=== PATIENT | female | born 1990 | race Two or more races ===

== ENCOUNTER 2018-07-24 12:35 | Inpatient (IN) | payer OTHER ==
[~2018-07-24] VITALS: Ht 167.6 cm; Wt 111.6 kg
[2018-07-24] MEDS ORDERED: LEVOTHYROXINE25 MCG PO (13:07)
[2018-07-24] MEDS ORDERED: PNV-FERROUS FU1 EACH PO (13:08)
== END 2018-07-31 12:27 | disposition home or self-care (01) | DRG 788 ==
LOC: OB/GYN 07-29 08:00 → O/R 07-29 08:32 → OB/GYN 07-29 12:35
PROVIDERS: Obstetrics & Gynecology
PROC: 4A1HXCZ Monitoring of Products of Conception, Cardiac Rate, External Approach (ICD-10-PCS; 2018-07-29)
PROC: 4A033R1 Measurement of Arterial Saturation, Peripheral, Percutaneous Approach (ICD-10-PCS; 2018-07-29)
PROC: 10D00Z1 Extraction of Products of Conception, Low, Open Approach (ICD-10-PCS; principal; 2018-07-29 08:00)
DX: O34.211 Maternal care for low transverse scar from previous cesarean delivery (principal); O24.420 Gestational diabetes mellitus in childbirth, diet controlled; O75.82 Onset (spontaneous) of labor after 37 completed weeks of gestation but before 39 completed weeks gestation, with delivery by (planned) cesarean section; Z3A.39 39 weeks gestation of pregnancy; Z37.0 Single live birth